=== PATIENT | male | born 1990 | race Caucasian/White ===

== ENCOUNTER → 2017-10-20 | Emergency (ER) | payer OTHER ==
[~2017-10-20] VITALS: Ht 190.5 cm; Wt 67.0 kg
[~2017-10-20] MED LIST: COLC0.6T69 PO; IBUP-1985 PO
[2017-10-20 10:53] VITALS: BP 120/95
== END | disposition home or self-care (01) ==
LOC: ER 09:07
DX: I31.9 Disease of pericardium, unspecified (principal); R07.89 Other chest pain; Z88.0 Allergy status to penicillin; Z79.899 Other long term (current) drug therapy; Z60.2 Problems related to living alone
CPT/HCPCS: 71045; 99284

== ENCOUNTER 2023-09-03 10:37 | Emergency (ER) | payer BC ==
[~2023-09-03] VITALS: Ht 190.5 cm; Wt 79.7 kg
[~2023-09-03 10:37] MED LIST changes: -COLC0.6T69 PO; +COLC0.6T72 PO
[2023-09-03 12:05] LABS: BILIRUBIN,URINE NEGATIVE (Neg); CLARITY,URINE CLEAR (Clear); COLOR,URINE STRAW (Yellow); GLUCOSE, URINE NEGATIVE (Neg); KETONES,URINE NEGATIVE (Neg); LEUKOCYTE ESTERASE ,URINE NEGATIVE (Neg); NITRITES, URINE NEGATIVE (Neg); OCCULT BLOOD,URINE SMALL (Neg); PROTEIN,URINE NEGATIVE (Neg); UROBILINOGEN,URINE 0.2 E.U/dL (0.2-1.0)
[2023-09-03 12:20] LABS: UA COLLECTION TYPE CLN CATCH MIDSTREAM
[2023-09-03 12:22] LABS: BACTERIA,URINE NONE SEEN /HPF (Neg); MUCUS STRANDS FEW /LPF (Neg); RBC,URINE 0-2 /HPF (0-2); SQUAMOUS EPITHELIAL CELL,UR FEW /LPF (FEW); WBC,URINE 0-4 /HPF (0-4)
[2023-09-03] MEDS ORDERED: normal saline 1000ML IV soln IV ONE (12:35)
[2023-09-03] MEDS ORDERED: pantoprazole 40mg IV 80 MG in normal saline 100ml IV soln 100 ML IV ONE (12:35)
[2023-09-03] MEDS ORDERED: [UNRECOGNIZED DRUG - OTHER] IV ONE (12:38)
[2023-09-03] MEDS ORDERED: PANTOPRAZOLE IV ONE (12:38)
[2023-09-03] MEDS ORDERED: pantoprazole 40 MG vial IV ONE (12:45)
[2023-09-03 13:15] LABS: BASOPHILS % (AUTO) 0.2 % (0-1); EOSINOPHILS # (AUTO) 0.1 X10'3 (0-0.9); EOSINOPHILS % (AUTO) 1.2 % (0-6); HEMATOCRIT 43.8 % (42.0-52.0); LYMPHOCYTES # (AUTO) 1.3 X10'3 (1.1-4.8); LYMPHOCYTES % (AUTO) 19.6 % (21-51); MEAN CORPUSCULAR HEMOGLOBIN 29.7 PG (27.0-31.0); MEAN CORPUSCULAR HGB CONC 34.2 g/dL (33.0-36.5); MEAN CORPUSCULAR VOLUME 87.1 FL (78-98); MEAN PLATELET VOLUME 7.8 FL (7.4-10.4); MONOCYTES # (AUTO) 0.5 X10'3 (0-0.9); MONOCYTES % (AUTO) 7.8 % (2-12); NEUTROPHILS # (AUTO) 4.7 X10'3 (1.8-7.7); NEUTROPHILS % (AUTO) 71.2 % (42-75); PLATELET COUNT 269 X10'3 (140-440); RED BLOOD COUNT 5.03 X10'6 (4.70-6.10); RED CELL DISTRIBUTION WIDTH 12.5 % (11.5-14.5); WHITE BLOOD COUNT 6.5 X10'3 (4.5-11.0)
[2023-09-03 13:29] LABS: APTT 27 SECONDS (22-32); PROTHROMBIN TIME 10.7 SECONDS (9.0-12.0)
[2023-09-03 13:34] LABS: ALANINE AMINOTRANSFERASE 26 U/L (12-78); ALBUMIN 4.4 G/DL (3.4-5.0); ALBUMIN/GLOBULIN RATIO 1.1 (1.1-1.5); ALKALINE PHOSPHATASE 46 IU/L (46-116); ANION GAP 3 (8-16); ASPARTATE AMINO TRANSFERASE 25 U/L (10-37); BILIRUBIN,TOTAL 0.7 MG/DL (0.1-1.0); BLOOD UREA NITROGEN 12 MG/DL (7-18); BUN/CREATININE RATIO 16.2 (10.0-20.0); CALCIUM 9.6 MG/DL (8.5-10.1); CHLORIDE 102 MMOL/L (99-107); CREATININE 0.74 MG/DL (0.60-1.10); GLUCOSE 92 MG/DL (70-104); POTASSIUM 3.8 MMOL/L (3.5-5.1); SODIUM 136 MMOL/L (135-145); TOTAL CARBON DIOXIDE 31.4 MMOL/L (24-32); TOTAL PROTEIN 8.4 G/DL (6.4-8.2); eCRCL 162 ML/MIN; eGFR > 90 ML/MIN
[2023-09-03] MEDS ORDERED: PANT-47 PO (14:54)
[2023-09-03 15:11] VITALS: BP 113/74; PULSE 66; RESP 14; TEMP 98.6; O2SAT 98
[2023-09-04] MEDS ORDERED: CLIN300C98 PO (13:58)
== END 2023-09-03 15:47 | disposition home or self-care (01) ==
LOC: ER 10:37
DX: K92.2 Gastrointestinal hemorrhage, unspecified (principal); R42 Dizziness and giddiness; Z72.89 Other problems related to lifestyle; Z88.0 Allergy status to penicillin; Z79.899 Other long term (current) drug therapy
CPT/HCPCS: 36415; 71045; 80053; 81001; 85025; 85610; 85730; 86885; 86900; 86901; 93005; 96361; 96374; 99285; C9113; J7030; 96372

== ENCOUNTER 2023-09-04 12:24 | Emergency (ER) | payer BC ==
[~2023-09-04] VITALS: Ht 190.5 cm; Wt 79.6 kg
[~2023-09-04 12:24] MED LIST changes: +PANT-47 PO
[2023-09-04 12:34] VITALS: BP 123/75; PULSE 83; RESP 18; O2SAT 99
[2023-09-04 13:36] LABS: BASOPHILS % (AUTO) 0.5 % (0-1); EOSINOPHILS # (AUTO) 0.1 X10'3 (0-0.9); EOSINOPHILS % (AUTO) 1.3 % (0-6); HEMATOCRIT 39.1 % (42.0-52.0); HEMOGLOBIN 13.4 g/dl (14.0-17.9); LYMPHOCYTES # (AUTO) 1.1 X10'3 (1.1-4.8); LYMPHOCYTES % (AUTO) 25.4 % (21-51); MEAN CORPUSCULAR HEMOGLOBIN 29.9 PG (27.0-31.0); MEAN CORPUSCULAR HGB CONC 34.3 g/dL (33.0-36.5); MEAN CORPUSCULAR VOLUME 87.1 FL (78-98); MEAN PLATELET VOLUME 7.6 FL (7.4-10.4); MONOCYTES # (AUTO) 0.3 X10'3 (0-0.9); MONOCYTES % (AUTO) 7.7 % (2-12); NEUTROPHILS # (AUTO) 2.8 X10'3 (1.8-7.7); NEUTROPHILS % (AUTO) 65.1 % (42-75); PLATELET COUNT 243 X10'3 (140-440); RED BLOOD COUNT 4.49 X10'6 (4.70-6.10); RED CELL DISTRIBUTION WIDTH 12.5 % (11.5-14.5); WHITE BLOOD COUNT 4.3 X10'3 (4.5-11.0)
[2023-09-04] MEDS ORDERED: CLIN300C98 PO (13:58)
[2023-09-04 14:35] VITALS: TEMP 97.8
== END 2023-09-04 14:40 | disposition home or self-care (01) ==
LOC: ER 12:24
DX: K92.2 Gastrointestinal hemorrhage, unspecified (principal); N39.0 Urinary tract infection, site not specified
CPT/HCPCS: 36415; 85025; 99283

== ENCOUNTER 2023-12-12 18:05 | Emergency (ER) | payer BC ==
[~2023-12-12] VITALS: Ht 190.5 cm; Wt 80.1 kg
[2023-12-12 18:11] VITALS: BP 119/87; PULSE 87; RESP 18; TEMP 97.8; O2SAT 98
[2023-12-12] MEDS ORDERED: NAPR-56 PO (18:48)
== END 2023-12-12 19:09 | disposition home or self-care (01) ==
LOC: ER 18:05
DX: S52.501A Unspecified fracture of the lower end of right radius, initial encounter for closed fracture (principal); Z88.0 Allergy status to penicillin; Z79.1 Long term (current) use of non-steroidal anti-inflammatories (NSAID); Z79.899 Other long term (current) drug therapy; W19.XXXA Unspecified fall, initial encounter; Y93.89 Activity, other specified; Y92.89 Other specified places as the place of occurrence of the external cause; Y99.8 Other external cause status
CPT/HCPCS: 29125; 73110; 99283; A4565; A6449